=== PATIENT | female | born 1970 | race Caucasian/White ===

== ENCOUNTER 2018-03-23 09:22 | Emergency (ER) | payer BC ==
[2018-03-23 09:39] VITALS: BP 110/72
--- NOTE | 2018-03-23 09:55 | UC ---
Respiratory Complaint HPI - HPI Summary HPI Summary: Patient is a smoker, has had one week of increased cough, SOb and head fullness - History of Current Complaint Chief Complaint: UCGeneralIllness Stated Complaint: COLD SYMPTOMS Time Seen by Provider: 03/23/18 09:36 Hx Obtained From: Patient Hx Last Menstrual Period: present ?: No Onset/Duration: Sudden Onset, Lasting Weeks - 1 Timing: Constant Severity Initially: Mild Severity Currently: Moderate Pain Intensity: 0 Character: Cough: Nonproductive Aggravating Factors: Exertion, Deep Breaths Alleviating Factors: Nothing Associated Signs And Symptoms: Positive: Wheezing, URI, Nasal Congestion, Sinus Discomfort - Allergies/Home Medications Allergies/Adverse Reactions: Allergies Allergy/AdvReac Type Severity Reaction Status Date / Time MS Penicillin G Allergy Intermediate Rash Verified 06/18/12 11:46 [Penicillin G] Penicillins Allergy Intermediate Rash Verified 03/23/18 09:39 PMH/Surg Hx/FS Hx/Imm Hx Previously Healthy: Yes - Surgical History Surgical History: None - Family History Known Family History: Positive: Hypertension - Social History Alcohol Use: Occasionally Substance Use Type: None Smoking Status (MU): Heavy Every Day Tobacco Smoker Review of Systems Constitutional: Negative Skin: Negative Eyes: Negative ENT: Sore Throat, Ear Ache, Nasal Discharge, Sinus Pain/Tenderness Respiratory: Shortness Of Breath, Cough Cardiovascular: Negative Gastrointestinal: Negative Genitourinary: Negative Motor: Negative Neurovascular: Negative Musculoskeletal: Negative Neurological: Headache Psychological: Negative Is Patient Immunocompromised?: No All Other Systems Reviewed And Are Negative: Yes Physical Exam Triage Information Reviewed: Yes Appearance: Well-Appearing, Well-Nourished, Ill-Appearing Vital Signs: Initial Vital Signs Temp 98.3 F 03/23/18 09:35 Pulse 100 03/23/18 09:35 Resp 18 03/23/18 09:35 BP 110/72 03/23/18 09:35 Pulse Ox 96 03/23/18 09:35 Vital Signs Reviewed: Yes Eye Exam: Normal ENT: Positive: TM bulging, Sinus tenderness Dental Exam: Normal Neck exam: Normal Neck: Positive: Supple, Nontender, No Lymphadenopathy Respiratory: Positive: Chest non-tender, No respiratory distress, Rhonchi, Wheezing Cardiovascular Exam: Normal Cardiovascular: Positive: No Murmur, Pulses Normal, Tachycardia Abdominal Exam: Normal Abdomen Description: Positive: Nontender, No Organomegaly, Soft Bowel Sounds: Positive: Present Musculoskeletal Exam: Normal Neurological Exam: Normal Psychological Exam: Normal Skin Exam: Normal UC Diagnostic Evaluation - Laboratory O2 Sat by Pulse Oximetry: 96 Respiratory Course/Dx - Course Course Of Treatment: hx obtained, exam performed ,meds reviewed, recommend follow up with PCP due to interest in smoking cessation - Differential Dx/Diagnosis Differential Diagnosis/HQI/PQRI: Bronchitis, Exacerbation Of COPD, Laryngitis, Sinusitis Provider Diagnoses: tobacco abuse. bronchitis. serous otitis of left ear Discharge - Sign-Out/Discharge Documenting (check all that apply): Patient Departure - Discharge Plan Condition: Stable Disposition: HOME Prescriptions: Albuterol HFA INHALER* [Ventolin HFA Inhaler*] 2 puff INH Q4H PRN #1 mdi PRN Reason: Cough Azithromyxin LULU (NF) [Z-Lulu (Zithromax) 250 mg tabs #6] 2 tab PO .TODAY, THEN 1 DAILY #6 tab predniSONE [Prednisone 20 MG TAB] 20 mg PO DAILY #10 tablet Patient Education Materials: Acute Bronchitis (ED) Referrals: Mango Morgan [employer] [Primary Care Provider] - Additional Instructions: 1. take the medication as prescribed. 2. FOllow up with Ray Morgan concerning any increase in symptoms and Use of medications to quit smoking. - Billing Disposition and Condition Condition: STABLE Disposition: Home
== END 2018-03-23 09:56 | disposition home or self-care (01) ==
LOC: UCCORT 09:22
DX: J40 Bronchitis, not specified as acute or chronic (principal); H65.92 Unspecified nonsuppurative otitis media, left ear; Z72.0 Tobacco use; Z88.0 Allergy status to penicillin
CPT/HCPCS: 99202; G0463

== ENCOUNTER 2020-01-08 08:39 | Emergency (ER) | payer OTHER, BC ==
[2020-01-08 08:53] VITALS: BP 115/69
== END 2020-01-08 09:02 | disposition home or self-care (01) ==
LOC: UCCORT 08:39